=== PATIENT | male | born 1990 | race Two or more races ===

== ENCOUNTER 2018-12-20 12:09 | Emergency (ER) | payer SELFPAY ==
[~2018-12-20] VITALS: Ht 170.2 cm; Wt 111.0 kg
[2018-12-20 15:07] VITALS: BP 152/61
== END 2018-12-20 16:08 | disposition left against medical advice (07) ==
LOC: ER 12:09
DX: Z53.21 Procedure and treatment not carried out due to patient leaving prior to being seen by health care provider (principal)

== ENCOUNTER 2018-12-20 16:54 | Emergency (ER) | payer MEDICAID ==
[~2018-12-20] VITALS: Ht 170.2 cm; Wt 111.0 kg
[2018-12-20 17:07] VITALS: BP 115/72
== END 2018-12-20 18:55 | disposition home or self-care (01) ==
LOC: ER 16:54
DX: R05 Cough (principal); J30.9 Allergic rhinitis, unspecified; H10.10 Acute atopic conjunctivitis, unspecified eye; J40 Bronchitis, not specified as acute or chronic; R09.82 Postnasal drip; Z88.6 Allergy status to analgesic agent; Z88.8 Allergy status to other drugs, medicaments and biological substances
CPT/HCPCS: 99282